=== PATIENT | female | born 2000 | race African-American/Black ===

== ENCOUNTER 2025-02-20 20:44 | Emergency (ER) | payer OTHER, SELFPAY ==
[2025-02-20 21:28] LABS: Hematocrit 28.6 % (34.9-44.5); Hemoglobin 8.0 g/dL (12.0-15.5); Mean Corpuscular Hemoglobin 17.4 pg (27.0-33.0); Mean Corpuscular Volume 62.2 fL (81.6-98.3); Platelet Count 483 10x3/uL (150-450); Red Blood Cell (RBC) Count 4.60 10x6/uL (3.90-5.03); White Blood Cell (WBC) Count 9.34 10x3/uL (3.5-10.5)
[2025-02-20 21:43] LABS: ALT (SGPT) 40 U/L (Less than 34); AST (SGOT) 46 U/L (11-34); Albumin 4.5 g/dL (3.1-4.5); Alkaline Phosphatase 53 U/L (40-110); Anion Gap 14 mmol/L (10-20); BUN (Urea Nitrogen) 12 mg/dL (7.0-18.7); Bilirubin, Total 0.3 mg/dL (0.3-1.2); CK (CPK) 330 U/L (29-168); Calc. Creatinine Clearance 0 mL/min (70-130); Calcium 9.2 mg/dL (7.8-10.44); Carbon Dioxide 21 mmol/L (22-29); Chloride 106 mmol/L (98-107); Globulin 3.5 g/dL (2.4-3.5); Glucose 70 mg/dL (70-105); Potassium 3.3 mmol/L (3.5-5.1); Sodium 138 mmol/L (136-145)
[2025-02-20 21:44] LABS: Acetaminophen Less than 10 mcg/mL (Less than 10); Lipase 24 U/L (8-78); Salicylate Less than 8.0 mg/dL (Less than 8.0)
[2025-02-20 21:46] LABS: #Basophils 0.07 10x3/uL (0.0-0.2); #Eosinophils 0.20 10x3/uL (0.0-0.5); #Monocytes 0.83 10x3/uL (0.0-1.1); #Neutrophils 3.41 10x3/uL (1.5-8.4); %Basophils 0.7 % (0.0-2.0); %Eosinophils 2.1 % (0.0-6.0); %Lymphocytes 51.5 % (18.0-47.0); %Monocytes 8.9 % (0.0-10.0); %Neutrophils 36.6 % (40.0-75.0); MDiff Complete? YES; Microcytosis MODERATE=15-30 cells (100X) (0-5/hpf); Platelet Adequacy Comment Appears Increased
[2025-02-20 21:47] LABS: BHCG - Serum Negative (NEGATIVE); Pregs Control Background? CLEAR/WHITE (CLR/WHITE); Pregs Control Bar Appear? YES (CONTROL BAR)
== END 2025-02-20 22:15 | disposition home or self-care (01) ==
LOC: CSHERS 20:44
DX: T40.711A Poisoning by cannabis, accidental (unintentional), initial encounter (principal)
CPT/HCPCS: 36416; 80053; 80307; 82550; 83690; 84703; 85025; 85060; 96360